=== PATIENT | female | born 1995 | race Caucasian/White ===

== ENCOUNTER 2017-03-21 23:05 | Emergency (ER) | payer OTHER ==
[2017-03-21 23:40] VITALS: PULSE 80; TEMP 97.2; BMI 72.8
[2017-03-22 00:19] LABS: URINE APPEARANCE CLEAR; URINE BILIRUBIN NEGATIVE (NEGATIVE); URINE BLOOD NEGATIVE (NEGATIVE); URINE COLOR LTYELLOW; URINE GLUCOSE (UA) NEGATIVE (NEGATIVE); URINE KETONE NEGATIVE (NEGATIVE); URINE LEUK ESTERASE NEGATIVE (NEGATIVE); URINE NITRITE NEGATIVE (NEGATIVE); URINE PROTEIN NEGATIVE (NEGATIVE); URINE UROBILINOGEN NEGATIVE mg/dL (0.2-1.0)
--- NOTE | 2017-03-22 00:22 | PDOC ---
History of Present Illness - General Chief Complaint: Pain Stated Complaint: FATIGUE Time Seen by Provider: 03/21/17 23:41 - History of Present Illness Initial Comments: 03/21/17 23:59 CHIEF COMPLAINT: HISTORY OF PRESENT ILLNESS: 21 year old female with no PMH presents with thick vaginal discharge with a fishy odor. LMP 03/12/17, but was expected . States that "at first I thought it was because of my period, but my period is gone and it's still here." Also reports two brief episodes per day of cramping lower abdominal pain with 3-4/10 severity. Reports one male sexual partner. Denies condom use. Denies fever, chills, malaise, nausea, vomiting, diarrhea, dysuria, and urinary urgency or frequency. No recent travel or sick contacts. PAST MEDICAL HISTORY: Denies past medical history FAMILY HISTORY: Denies ALLERGIES: No known drug allergies REVIEW OF SYSTEMS General/Constitutional: Denies fever or chills. Denies weakness, weight change. Cardiovascular: Denies chest pain or shortness of breath. Respiratory: Denies cough, wheezing, or hemoptysis. Gastrointestinal: Reports mild constipation. Denies nausea, vomiting, diarrhea or rectal bleeding. Genitourinary: Denies dysuria, frequency, or change in urination. Skin and breasts: Denies rash or easy bruising. Allergic/Immunologic: Denies hives or skin allergy. Denies latex allergy. PHYSICAL EXAM General Appearance: Well-appearing, appropriately dressed. No apparent distress , no intoxication. HEENT: EOMI, PERRLA, normal voice Neck: Supple. Trachea midline. Respiratory/Chest: Lungs CTAB. No shortness of breath, respiratory distress, accessory muscle use. Cardiovascular: RRR. S1, S2. No murmur, bradycardia, tachycardia. Gastrointestinal/Abdominal: Normal bowel sounds. Abdomen soft, non-distended. No tenderness or rebound tenderness. No organomegaly, pulsatile mass, guarding , hernia, hepatomegaly, splenomegaly. Pelvic: Vaginal vault with thin white discharge and fishy odor. External genitalia normal without lesions. Cervix is long and closed. No cervical motion tenderness. Uterus is nontender and normal in size. Adnexa are nontender and without masses. Musculoskeletal/Extremities: Normal inspection. FROM of all extremities, normal capillary refill. Pelvis Stable. No CVA tenderness. No tenderness to extremities, pedal edema, swelling, erythema or deformity. Integumentary: Appropriate color, dry, warm. No cyanosis, erythema, jaundice or rash Neurologic: Fully oriented, alert. Appropriate mood/affect. Motor strength 5/ 5. No appreciable EOM palsy, facial droop or sensory deficit. Past History - Past Medical History Home Medications: Ambulatory Orders Metronidazole [Flagyl -] 500 mg PO BID #14 tablet 03/22/17 COPD: No - Immunization History Immunization Up to Date: Yes - Suicide/Smoking/Psychosocial Hx Smoking History: Never smoked Have you smoked in the past 12 months: No Information on smoking cessation initiated: No Hx Alcohol Use: No Drug/Substance Use Hx: No Substance Use Type: None *Physical Exam - Vital Signs Last Vital Signs Temp Pulse Resp BP Pulse Ox 97.2 F L 80 18 134/81 100 03/21/17 23:31 03/21/17 23:31 03/21/17 23:31 03/21/17 23:31 03/21/17 23:31 Medical Decision Making - Medical Decision Making 03/22/17 00:23 21 year old female with no PMH presents with thickened and malodorous vaginal discharge. - *DC/Admit/Observation/Transfer Diagnosis at time of Disposition: Bacterial vaginosis - Discharge Dispostion Disposition: HOME Condition at time of disposition: Stable Admit: No - Prescriptions Prescriptions: Metronidazole [Flagyl -] 500 mg PO BID #14 tablet - Referrals - Patient Instructions Printed Discharge Instructions: DI for Bacterial Vaginosis Additional Instructions: Please take medication as prescribed. Please call the ER in 2-3 days to confirm negative results if you do not hear back from us. If you develop any vaginal bleeding, increased pain, or any new or worsening symptoms, please return to the ER. - Post Discharge Activity Forms/Work/School Notes: Back to Work
--- NOTE | 2017-03-22 00:44 | PDOC ---
*Physical Exam - Vital Signs Last Vital Signs Temp Pulse Resp BP Pulse Ox 97.2 F L 80 18 134/81 100 03/21/17 23:31 03/21/17 23:31 03/21/17 23:31 03/21/17 23:31 03/21/17 23:31 ED Treatment Course - ADDITIONAL ORDERS Additional order review: Laboratory Results 03/21/17 23:57 Urine Color Ltyellow Urine Appearance Clear Urine pH 6.0 Ur Specific Christine 1.016 Urine Protein Negative Urine Glucose (UA) Negative Urine Ketones Negative Urine Blood Negative Urine Nitrite Negative Urine Bilirubin Negative Urine Urobilinogen Negative Medical Decision Making - Medical Decision Making 03/22/17 00:44 agree with care from [facility]
[2017-03-22 01:35] VITALS: BP 132/80
[2017-03-22 09:56] LABS: URINE LEUK ESTERASE Negative (NEGATIVE)
== END 2017-03-22 01:35 | disposition home or self-care (01) ==
LOC: JER 23:05
DX: N76.0 Acute vaginitis (principal)
CPT/HCPCS: 81003; 84703; 87086; 99282-25

== ENCOUNTER 2017-11-30 16:05 | Emergency (ER) | payer OTHER ==
[2017-11-30 16:11] VITALS: BP 143/81; PULSE 81; TEMP 98.4; BMI 34.0
--- NOTE | 2017-11-30 16:46 | PDOC ---
History of Present Illness - General Chief Complaint: Ear Problem Stated Complaint: EAR PROBLEM - History of Present Illness Initial Comments: 22 female without comorbidities presents for traumatic onset of left ear pain after using a Q-tip 11/30/17 16:41 Past History - Past Medical History Allergies/Adverse Reactions: Allergies Allergy/AdvReac Type Severity Reaction Status Date / Time No Known Allergies Allergy Verified 11/30/17 16:10 Home Medications: Ambulatory Orders Ofloxacin 10 drop BID 7 Days #1 bottle 11/30/17 COPD: No - Immunization History Immunization Up to Date: Yes - Suicide/Smoking/Psychosocial Hx Smoking History: Never smoked Have you smoked in the past 12 months: No Hx Alcohol Use: No Drug/Substance Use Hx: No Substance Use Type: None Review of Systems - Review of Systems HEENTM: Yes: Ear Pain All Other Systems: Reviewed and Negative *Physical Exam - Vital Signs Last Vital Signs Temp Pulse Resp BP Pulse Ox 98.4 F 81 16 143/81 100 11/30/17 16:08 11/30/17 16:08 11/30/17 16:08 11/30/17 16:08 11/30/17 16:08 - Physical Exam Comments: HEAD: NC/AT EYES: Conjuntiva clear Ears: Right ear and tympanic membrane are normal, left ear canal has fresh blood there is a tympanic membrane rupture NOSE: No d/c THROAT: Moist mucous membrances, oral pharanx clear, uvula midline NECK: Supple without adenopathy CARDIAC: S1 S2 LUNGS: CTA Full and Equal breath sounds ABDOMEN: Soft NT ND MS: Full ROM in all joints without edema NEUROLOGIC: No gross sensory or motor deficits, NVID SKIN: Normal color and temperature no lesions or rashes 11/30/17 16:41 *DC/Admit/Observation/Transfer Diagnosis at time of Disposition: Tympanic membrane perforation - Discharge Dispostion Disposition: HOME Condition at time of disposition: Stable Decision to Admit order: No - Referrals Referrals: Manuel Garrido MD [Staff Physician] - - Patient Instructions Printed Discharge Instructions: Ruptured Eardrum, DI for Tympanic Membrane Perforation-Adult Additional Instructions: Return to the emergency room should symptoms worsen or go unresolved. He may take Tylenol and Motrin for pain. Please use the antibiotic drops as directed. Follow-up with ear nose and throat in one to 2 days for further evaluation and treatment options. Do not place any foreign bodies in your ears - Post Discharge Activity
[2017-11-30] MEDS ORDERED: IBUPROFEN 600 MG TABLET (FP) PO ONE ×2 (16:49)
== END 2017-11-30 16:58 | disposition home or self-care (01) ==
LOC: JERFT 16:05
DX: S09.22XA Traumatic rupture of left ear drum, initial encounter (principal); W22.8XXA Striking against or struck by other objects, initial encounter; Y93.E8 Activity, other personal hygiene; Y92.038 Other place in apartment as the place of occurrence of the external cause; Y99.8 Other external cause status
CPT/HCPCS: 99281-25

== ENCOUNTER 2018-04-14 21:01 | Emergency (ER) | payer SELFPAY ==
[2018-04-14 21:06] VITALS: BP 154/90; PULSE 81; TEMP 98.3; BMI 33.0
[2018-04-14 21:38] LABS: HCG,QUALITATIVE URINE Negative; URINE APPEARANCE CLOUDY; URINE BILIRUBIN NEGATIVE (<2.0 mg/dL); URINE COLOR YELLOW; URINE GLUCOSE (UA) NEGATIVE (NEGATIVE); URINE KETONE NEGATIVE (NEGATIVE); URINE LEUK ESTERASE NEGATIVE (NEGATIVE); URINE NITRITE NEGATIVE (NEGATIVE); URINE PROTEIN NEGATIVE (NEGATIVE); URINE UROBILINOGEN NEGATIVE mg/dL (0.2-1.0)
[2018-04-14] MEDS ORDERED: AZITHROMYCIN 250 MG TABLET PO ONE (21:40)
--- NOTE | 2018-04-14 21:43 | PDOC ---
History of Present Illness - General Chief Complaint: Urinary Problem Stated Complaint: PAIN Time Seen by Provider: 04/14/18 21:08 - History of Present Illness Initial Comments: 04/14/18 21:41 22-year-old female presents for evaluation of dysuria and vaginal discharge 7 days. She was taking Monistat on multiple occasions over the last month without much relief of her discharge he has no systemic symptoms. Past History - Past Medical History Allergies/Adverse Reactions: Allergies Allergy/AdvReac Type Severity Reaction Status Date / Time No Known Allergies Allergy Verified 04/14/18 21:04 Home Medications: Ambulatory Orders metroNIDAZOLE [Flagyl -] 500 mg PO DAILY #7 tablet 04/14/18 COPD: No - Immunization History Immunization Up to Date: Yes - Suicide/Smoking/Psychosocial Hx Smoking History: Never smoked Have you smoked in the past 12 months: No Hx Alcohol Use: No Drug/Substance Use Hx: No Substance Use Type: None Review of Systems - Review of Systems : Yes: See HPI, Dysuria *Physical Exam - Vital Signs Last Vital Signs Temp Pulse Resp BP Pulse Ox 98.3 F 81 18 154/90 100 04/14/18 21:04 04/14/18 21:04 04/14/18 21:04 04/14/18 21:04 04/14/18 21:04 - Physical Exam Comments: 04/14/18 21:42 Pelvic exam external female genitalia is normal there is milk textured white discharge from the cervical os there is no right or left adnexal tenderness or cervical motion tenderness pelvic exam was done w female nurse in the room Moderate Sedation - Procedure Monitoring Vital Signs: Procedure Monitoring Vital Signs Temperature 98.3 F 04/14/18 21:04 Pulse Rate 81 04/14/18 21:04 Respiratory Rate 18 04/14/18 21:04 Blood Pressure 154/90 04/14/18 21:04 O2 Sat by Pulse Oximetry (%) 100 04/14/18 21:04 ED Treatment Course - ADDITIONAL ORDERS Additional order review: Laboratory Results 04/14/18 21:15 Urine HCG, Qual Negative *DC/Admit/Observation/Transfer Diagnosis at time of Disposition: Bacterial vaginosis - Discharge Dispostion Disposition: HOME Condition at time of disposition: Stable Decision to Admit order: No - Referrals Referrals: Karma Hayes MD [Staff Physician] - - Patient Instructions Printed Discharge Instructions: Bacterial Vaginosis, DI for Bacterial Vaginosis Additional Instructions: Please take the antibiotic as directed. Return to the emergency room should symptoms worsen or go unresolved. Follow-up with primary care physician and [facility] in one to 2 days for further evaluation and treatment options. - Post Discharge Activity
[2018-04-14] MEDS ORDERED: AZITHROMYCIN 250 MG TABLET ONE (21:44)
== END 2018-04-14 23:01 | disposition home or self-care (01) ==
LOC: JERFT 21:01
DX: N76.0 Acute vaginitis (principal)
CPT/HCPCS: 36415; 81003; 84703; 87086; 87491; 87591; 99281-25